=== PATIENT | female | born 1995 | race Native Hawaiian/Other Pacific Islander ===

== ENCOUNTER → 2018-01-22 | Outpatient (CLI) | payer OTHER ==
--- NOTE | 2018-01-22 20:19 | US ---
EXAMINATION TYPE: US OB <= 14 wk fetus DATE OF EXAM: 01/22/2018 COMPARISON: NONE CLINICAL HISTORY: 22-year-old female Z36 confirm dates. EXAM PERFORMED: Transabdominal (TA) FINDINGS: EXAM MEASUREMENTS: GESTATIONAL AGE / DATING Physician Established: Not yet established Dates by LMP: (13 weeks/0 days) EDC: 07/30/2018 Dates by First Scan: No previous this is first scan Dates by Current Scan for: (12 weeks/6 days) EDC: 07/31/2018 MATERNAL ANATOMY Uterus: 13.9 x 7.3 x 8.5 cm Right Ovary: 3.3 x 2.7 x 1.9 cm Left Ovary: 2.5 x 1.9 x 1.2 cm Post CDS / Adnexa: wnl Presence of free fluid: No Presence of corpus luteal cyst: Yes, probably on the right measuring 1.8 cm. Presence of subchorionic bleed: Round hypoechoic area measuring 1.0 x 0.8 x 1.0 cm GESTATION / SURVEY CRL: 6.4 cm (12 weeks/6 days) Heart Rate: 165 bpm Rhythm: Normal IUP: Viable IUP Date of LMP: 10/23/2017 Beta HcG (if available): Not available at this time [employer] Special Items notes: Viable IUP, measurements consistent with dates. Probable subchorionic bleed visual ized measuring 1.0 x 0.8 x 1.0 cm IMPRESSION: 1. Single live intrauterine with estimated gestational age of 13 weeks 0 days by LMP. Curre nt ultrasound biometry is concordant (12 weeks 6 days). 2. A small round 1 cm hypoechoic area could represent a tiny perigestational bleed. Short interval fo llow-up can be performed if indicated. 3. Otherwise, complete survey recommended at 18-20 weeks.
== END | disposition home or self-care (01) ==
LOC: RADUSWWP 16:35
PROVIDERS: ATTEND Obstetrics & Gynecology
DX: O34.81 Maternal care for other abnormalities of pelvic organs, first trimester (principal); Z3A.12 12 weeks gestation of pregnancy
CPT/HCPCS: 76801

== ENCOUNTER 2018-07-30 09:18 | Inpatient (IN) | payer OTHER ==
[2018-07-30 10:02] LABS: Appearance,Urine Clear (Clear); Bacteria,Urine Rare /hpf; Bilirubin,Urine Negative (Negative); Blood,Urine Negative (Negative); Color,Urine Light Yellow; Glucose,Urine (UA) Negative (Negative); Ketones,Urine Negative (Negative); Leukocyte Esterase,Urine Large (Negative); Mucus,Urine Rare /hpf; Nitrite,Urine Negative (Negative); Protein,Urine Negative (Negative); RBC,Urine 2 /hpf (0-5); Specific Gravity,Urine 1.006 (1.001-1.035); Squamous Epithelial Cell,Urine 6 /hpf (0-4); Urobilinogen,Urine <2.0 mg/dL (<2.0); WBC,Urine 4 /hpf (0-5)
[2018-07-30] MEDS ORDERED: LIDOCAINE 1% (PF) 10 MG/ML (30 ML SDV) SQ PRN (10:25)
[2018-07-30] MEDS ORDERED: OXYTOCIN 10 UNIT/ML 1 ML VIAL IM PRN (10:25)
[2018-07-30] MEDS ORDERED: TERBUTALINE 1 MG/ML VIAL SQ PRN (10:25)
[2018-07-30] MEDS ORDERED: METHYLERGONOVINE 0.2 MG/ML 1 ML AMP IM PRN (10:25)
[2018-07-30] MEDS ORDERED: CARBOPROST TROMETHAMINE 250 MCG/ML 1 ML AMP IM PRN (10:25)
[2018-07-30 10:58] LABS: ALT 25 U/L (9-52); AST 28 U/L (14-36); Blood Urea Nitrogen 4 mg/dL (7-17); LDH 654 U/L (313-618)
[2018-07-30] MEDS: LACTATED RINGERS 1,000 ML IV SCH ×2 (11:03→19:06)
[2018-07-30 11:11] LABS: Basophils % (A) 0 %; Eosinophils # (A) 0.2 k/uL (0-0.7); Eosinophils % (A) 2 %; HCT 35.8 % (34.0-46.0); HGB 11.8 gm/dL (11.4-16.0); Hypochromasia Slight; Lymphocytes # (A) 1.8 k/uL (1.0-4.8); Lymphocytes % (A) 19 %; MCH 28.3 pg (25.0-35.0); MCV 85.9 fL (80.0-100.0); Mean Platelet Volume 7.2; Monocytes # (A) 0.6 k/uL (0-1.0); Monocytes % (A) 7 %; Neutrophils # (A) 6.4 k/uL (1.3-7.7); Neutrophils % (A) 70 %; Platelet Count 283 k/uL (150-450); Poikilocytosis Slight; RBC 4.17 m/uL (3.80-5.40); WBC 9.2 k/uL (3.8-10.6)
[2018-07-30 11:58] VITALS: BMI 32.1
--- NOTE | 2018-07-30 13:24 | P.HPOB ---
History of Present Illness H&P Date: 07/30/18 Chief Complaint: Contractions This is a 22-year-old female 1 para 0 with an estimated date of confinement of 07/30/2018, estimated gestational age of 40-0/7 weeks, who presents to labor and delivery with complaints of contractions that began yesterday and became stronger this morning. course has been uncomplicated up until this time. At her last visit on Monday she did have an elevated blood pressure but it was rechecked and went down to normal. She was scheduled for induction in a couple more days. She currently denies any headaches, blurry vision, or increased swelling. Upon arrival to triage her blood pressures were slightly elevated. labs: Hepatitis B surface antigen-negative RPR-nonreactive Rubella-immune Blood type-B positive Antibody screen-negative HIV-nonreactive Hemoglobin-12.2 Random glucose-82 Group B streptococcus-negative Chlamydia-positive early in and tested cure negative. However her boyfriend was recently tested positive and she was retreated a couple weeks ago. Tested cure has not been completed. Obstetrical history: Gynecologic history: History of chlamydia treated during this Social history: She is single. 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 Review of Systems Constitutional: Denies chills, Denies fever Eyes: denies blurred vision, denies pain Ears, nose, mouth and throat: Denies headache, Denies sore throat Cardiovascular: Denies chest pain, Denies shortness of breath Respiratory: Denies cough Gastrointestinal: Reports abdominal pain (Contractions), Denies diarrhea, Denies nausea, Denies vomiting Genitourinary: Reports pelvic pain, Reports Musculoskeletal: Reports low back pain Neurological: Denies numbness, Denies weakness Psychiatric: Denies anxiety, Denies depression Past Medical History Additional Past Medical History / Comment(s): Low Iron as an History of Any Multi-Drug Resistant Organisms: None Reported Past Surgical History: No Surgical Hx Reported Past Anesthesia/Blood Transfusion Reactions: No Reported Reaction Past Psychological History: No Psychological Hx Reported Smoking Status: Never smoker Past Alcohol Use History: None Reported Past Drug Use History: None Reported - Past Family History Father Family Medical History: No Reported History Medications and Allergies Home Medications Medication Instructions Recorded Confirmed Type No Known Home Medications 07/30/18 07/30/18 History Allergies Allergy/AdvReac Type Severity Reaction Status Date / Time No Known Allergies Allergy Verified 07/30/18 09:27 Exam Osteopathic Statement: *. No significant issues noted on an osteopathic structural exam other than those noted in the History and Physical/Consult. Vital Signs Temp Pulse Resp BP 07/30/18 09:28 97.9 F 85 16 143/94 Intake and Output 07/29/18 07/30/18 07/30/18 22:59 06:59 14:59 Other: Weight 82.1 kg HEENT: Within normal limits Heart: Regular rate and rhythm Lungs: Clear to auscultation bilaterally Abdomen: Cervix: On admission was 2 cm and shortly after admission was 3-1/2 cm/100%/-2 station. heart tones: Reactive Contractions: Approximately every 2-3 minutes Extremities: Negative Homans Results Result Diagrams: 07/30/18 10:30 07/30/18 10:30 Abnormal Lab Results - Last 24 Hours (Table) 07/30/18 07/30/18 Range/Units 09:35 10:30 BUN 4 L (7-17) mg/dL Creatinine 0.39 L (0.52-1.04) mg/dL Lactate Dehydrogenase 654 H (313-618) U/L Ur Leukocyte Esterase Large H (Negative) Ur Squamous Epith Cells 6 H (0-4) /hpf Urine Bacteria Rare H (None) /hpf Urine Mucus Rare H (None) /hpf Assessment and Plan (1) 40 weeks gestation of Current Visit: Yes Status: Acute Code(s): Z3A.40 - 40 WEEKS GESTATION OF SNOMED Code(s): 41720469 (2) Gestational hypertension affecting first Current Visit: Yes Status: Acute Code(s): O13.9 - GESTATIONAL HTN W/O SIGNIFICANT PROTEINURIA, UNSP TRIMESTER SNOMED Code(s): 35980647 Plan: Admission for early labor. Artificial rupture membranes and expectant management. Epidural anesthesia if desired. Will monitor blood pressures.
--- NOTE | 2018-07-30 13:27 | P.MSEPDOC ---
Presenting Problems - Arrival Data Date of Arrival on Unit: 07/30/18 Time of Arrival on Unit: 10:43 Mode of Transport: Ambulatory - Complaint OB-Reason for Admission/Chief Complaint: Possible Onset of Labor Comment: contractions x 1 day, stronger and 5 min apart today Medical History - Information : 1 Para: 0 Term: 0 : 0 Abortions: Spontaneous or Elective: 0 Number of Living Children: 0 - Gestational Age Gestational Age by ZULEYKA (wks/days): 40 Weeks and 0 Days Review of Systems - Review of Systems Constitutional: No problems Breast: No problems ENT: No problems Cardiovascular: No problems Respiratory: No problems Gastrointestinal: No problems Genitourinary: No problems Musculoskeletal: No problems Neurological: No problems Skin: No problems Vital Signs - Temperature Temperature: 97.9 F Temperature Source: Temporal Artery Scan - Pulse Right Brachial Pulse Rate: 85 Pulse Assessment Method: Automatic Cuff - Respirations Respiratory Rate: 16 Oxygen Delivery Method: Room Air - Blood Pressure Right Arm Sitting Blood Pressure: 143/94 Blood Pressure Mean: 110 Blood Pressure Source: Automatic Cuff Medical Screen Scoring (Pre) - Cervical Exam Dilation: 1-3 cm = 1 Effacement: More than 50% = 2 Membranes: Intact - Uterine Contractions Frequency: > or = 36 weeks =2 Duration: > 40 seconds = 2 - Maternal Vital Signs Maternal Temperature: N/A Maternal Blood Pressure: Diastolic > 89 = 1 Signs of Preeclampsia: N/A Maternal Respirations: N/A - Pain Assessment Pain Location and Character: Abdomen Pain Scale Used: Numeric (1 - 10) Pain Intensity: 6 Pain Description: *Acute, Tightness Pain Frequency: Intermittent Pain Duration: 4 Pain Duration Units: Hours Pain Behavior: None Exhibited Pain Aggravating Factors: Contractions - Maternal Trauma Maternal Trauma: N/A - Assessment Baseline FHR: 140 Heart Rate - NICHD Category: Category I (Normal) = 0 NST: Reactive Position: N/A - Total Score Total Score (Pre): 8 - Level of Risk Level of Risk: Medium (6-9) Physician Notification (Post) - Physician Notified Physician Notified Date: 07/30/18 Physician Notified Time: 10:23 Spoke With: Tristan Vizcarra Order Received: Yes (admit for labor, PIH workup) Disposition - Disposition OB Disposition: LDRP Suite I agree with the RN Medical Screening Exam: Yes Risk & Benefit of care provided described in d/c instruction: Yes Diagnosis: ENCOUNTER FOR FULL-TERM UNCOMPLICATED DELIVERY
[2018-07-30] MEDS: BUTORPHANOL 1 MG/ML 1 ML VIAL IV PRN ×2 (15:10→17:34)
[2018-07-30] MEDS ORDERED: CITRIC ACID-SODIUM CITRATE 15 ML CUP PO ONE (19:01)
[2018-07-30] MEDS ORDERED: ceFAZolin IN SWFI 2 GM/20 ML SYRINGE IVP ONE (19:01)
[2018-07-30] MEDS ORDERED: OXYTOCIN 10 UNIT/ML 1 ML VIAL ONE (19:18)
[2018-07-30] MEDS ORDERED: PHENYLEPHRINE-0.9% NACL SYG 1 MG/10 ML SYRINGE ONE (19:18)
[2018-07-30] MEDS ORDERED: MORPHINE SULFATE (PF) 0.3 MG/0.3 ML SYR ONE (19:18)
[2018-07-30] MEDS ORDERED: KETOROLAC 30 MG/ML 1 ML VIAL ONE (19:18)
[2018-07-30] MEDS ORDERED: NALBUPHINE 10 MG/ML VIAL (10ML MDV) ONE (19:18)
[2018-07-30] MEDS ORDERED: ONDANSETRON 4 MG/2 ML VIAL ONE (19:18)
--- NOTE | 2018-07-30 20:01 | P.OP ---
Date of Procedure: 07/30/18 Preoperative Diagnosis: 1. Intrauterine at 40-0/7 weeks. 2. Gestational hypertension. 3. Failure to progress. Postoperative Diagnosis: Same Procedure(s) Performed: Primary low transverse section Anesthesia: spinal (Duramorph) Surgeon: Sahara Hudson Power Brake Rebuilder #1: Damaris Jaquez Estimated Blood Loss (ml): 400 Pathology: other (Placenta) Condition: stable Disposition: floor Indications for Procedure: This is a 22-year-old female 1 para 0 at 40-0/7 weeks who presented in early active labor. She also is noted to have some elevated blood pressures. Her urine was negative for protein and her labs were essentially normal other than elevated LDH. Her blood pressures did not reach critical levels during labor. She progressed to a maximum of 6 cm and then did not make any further change for at least 4 hours despite adequate contractions. At this point the decision was made to proceed with section for failure to progress. Operative Findings: A viable female infant is noted in the vertex presentation with caput noted. Apgars are 8 at 1 minute and 9 at 5 minutes and infant weight was 7 lbs. 7 oz. Normal uterus tubes and ovaries are noted. Description of Procedure: The patient is taken to the operating room where she is placed in the dorsal supine position with leftward tilt after spinal Duramorph anesthesia is given. She is prepped and draped in the normal sterile fashion. Skin was tested and found to be adequately anesthetized. A Pfannenstiel skin incision was made with a scalpel. A second knife was used to carry the incision down to the underlying layer of fascia. The fascia was nicked in the midline with a scalpel and then extended laterally bilaterally with Wray scissors. The anterior lip of the fascia was grasped with 2 Wolf clamps and then dissected off the underlying rectus muscle in the midline with Wray scissors. The inferior aspect of the fascial incision was grasped with 2 Wolf clamps and dissected off the underlying rectus muscle and the midline with Wray scissors. Next the peritoneum layer was tented up with 2 hemostats and then entered sharply with the scalpel. The incision is extended superiorly and inferiorly with Metzenbaum scissors. Next a DeLee retractor is placed. The vesicouterine peritoneum is entered sharply with Metzenbaum scissors and extended laterally bilaterally with Metzenbaum scissors and then the bladder flap is pushed inferiorly. The lower uterine segment is incised in transverse fashion with the scalpel and then bluntly entered with a hemostat. Clear fluid is noted. The incision was then extended laterally bilaterally with 2 fingers. Next the 's head is delivered through the incision. Nose and mouth are bulb suctioned. The remainder of the infant is easily delivered and placed on mother 's abdomen. Cord is clamped and cut. is taken to warmer by nursing staff. Uterine fundus is gently massaged and placenta is delivered manually. Uterus is exteriorized and cleared of all clots and debris. Uterine incision is closed with 0 Vicryl suture in a running locked fashion. A second layer of 0 Vicryl suture is used in a running fashion for hemostasis. Once adequate hemostasis as assured, the vesicouterine peritoneum is reapproximated with 2-0 Vicryl suture in a running fashion. Posterior cul-de-sac is suctioned of all clots and debris. Uterus is returned to the abdomen. Incision is noted to be hemostatic. Peritoneal layer is closed with 0 Vicryl suture in a running fashion. Muscle layer is reapproximated with 0 Vicryl suture in interrupted fashion. Fascia layer is then closed with 0 PDS suture with 2 sutures meeting in the midline and the knots buried in either side and in the midline. The subcutaneous tissue was then closed with 2-0 Vicryl suture. Skin layer was then closed with liya. All sponge and needle counts are correct. The patient is taken to recovery room in stable condition.
[2018-07-30] MEDS ORDERED: ONDANSETRON 4 MG/2 ML VIAL IVP PRN (20:04)
[2018-07-30] MEDS ORDERED: HYDROcodone/APAP 5-325MG 1 EACH TAB PO PRN (20:04)
[2018-07-30] MEDS ORDERED: diphenhydrAMINE 50 MG CAP PO PRN (20:04)
[2018-07-30] MEDS ORDERED: KETOROLAC 30 MG/ML 1 ML VIAL IVP PRN (20:04)
[2018-07-30] MEDS ORDERED: METOCLOPRAMIDE 5 MG/ML 2 ML VIAL IVP PRN (20:04)
[2018-07-30] MEDS ORDERED: diphenhydrAMINE 50 MG/ML 1 ML VIAL IVP PRN ×2 (20:04)
[2018-07-30] MEDS ORDERED: ACETAMINOPHEN TAB 325 MG TAB PO PRN (20:04)
[2018-07-30] MEDS ORDERED: SIMETHICONE 80 MG CHEWABLE PO PRN (20:04)
[2018-07-30] MEDS ORDERED: diphenhydrAMINE 25 MG CAP PO PRN (20:04)
[2018-07-30] MEDS ORDERED: ZOLPIDEM 5 MG TAB PO PRN (20:04)
[2018-07-30] MEDS ORDERED: NALOXONE 0.4 MG/ML 1 ML VIAL IV PRN (20:04)
[2018-07-30] MEDS ORDERED: HYDROcodone/APAP 7.5-325MG 1 EACH TAB PO PRN (20:04)
[2018-07-30] MEDS ORDERED: OXYTOCIN 20 UNITS/1000 ML NS 1,000 ML IV SCH (20:04)
[2018-07-30] MEDS ORDERED: LANOLIN CREAM 5 GM TUBE TOPICAL PRN (20:04)
[2018-07-31] MEDS ORDERED: NALOXONE 0.4 MG/ML 1 ML VIAL IV PRN (03:04)
[2018-07-31] MEDS ORDERED: MORPHINE SULFATE 4 MG/ML SYRINGE IVP PRN (03:04)
[2018-07-31] MEDS: SENNOSIDES-DOCUSATE SODIUM 1 EACH TAB PO SCH ×2 (07:56→20:32)
[2018-07-31 08:18] LABS: Basophils # (A) 0.1 k/uL (0-0.2); Basophils % (A) 1 %; Eosinophils # (A) 0.1 k/uL (0-0.7); Eosinophils % (A) 1 %; HCT 33.4 % (34.0-46.0); HGB 10.9 gm/dL (11.4-16.0); Hypochromasia Slight; Lymphocytes # (A) 1.8 k/uL (1.0-4.8); Lymphocytes % (A) 15 %; MCH 28.4 pg (25.0-35.0); MCHC 32.6 g/dL (31.0-37.0); Monocytes # (A) 0.6 k/uL (0-1.0); Monocytes % (A) 6 %; Neutrophils # (A) 9.1 k/uL (1.3-7.7); Neutrophils % (A) 77 %; Platelet Count 276 k/uL (150-450); Poikilocytosis Slight; RBC 3.84 m/uL (3.80-5.40); RDW 13.2 % (11.5-15.5); WBC 11.7 k/uL (3.8-10.6)
--- NOTE | 2018-07-31 08:50 | P.PN ---
Progress Note - Text Date: 07/31/2018 Time: 07 The patient is status post section Vital signs stable VAS: 0-10 Patient has no complaints of pain, nausea, vomiting or headache. Pain meds to be managed by service.
--- NOTE | 2018-07-31 09:13 | P.PNOBGPC ---
Subjective - Subjective Principal diagnosis: Status post delivery postoperative day #1 Interval history: Patient is doing well. She is ambulating. Lochia is decreasing. Pain is well- controlled. She has been unable to urinate yet. She is not passing flatus yet. She is working on breast-feeding. Patient reports: Reports appetite normal, Reports pain well controlled, Reports ambulating normally [place]: doing well Objective - Vital Signs Latest vital signs: Vital Signs Temp Pulse Resp BP Pulse Ox 07/31/18 07:56 99.0 F 88 18 137/77 100 07/31/18 06:05 16 07/31/18 04:05 16 99 07/31/18 04:00 98.1 F 85 16 144/89 99 07/31/18 03:05 16 99 07/31/18 00:00 86 16 139/95 07/30/18 22:05 88 16 135/84 99 07/30/18 21:35 85 16 137/80 99 07/30/18 21:05 86 16 134/80 97 07/30/18 20:50 83 16 135/74 98 07/30/18 20:35 95 16 137/62 99 07/30/18 20:20 80 16 140/83 07/30/18 20:05 96.3 F L 70 16 114/55 99 07/30/18 13:27 97.9 F 85 16 143/94 07/30/18 09:28 97.9 F 85 16 143/94 Intake and Output 07/30/18 07/31/18 07/31/18 22:59 06:59 14:59 Intake Total 600 Output Total 1150 Balance -1150 600 Intake: Oral 600 Output: Urine 1150 Other: Voiding Method Indwelling Catheter Indwelling Catheter # Voids 2 - Exam Extremities: Present: normal. Absent: tenderness Abdomen: Present: normal appearance, soft (Faint bowel sounds 4). Absent: distention, tenderness Incision: Present: normal, dry, intact. Absent: erythematous Uterus: Present: normal, firm, tenderness (Mild) - Labs Labs: Abnormal Lab Results - Last 24 Hours (Table) 07/30/18 07/30/18 07/31/18 Range/Units 09:35 10:30 08:00 WBC 11.7 H (3.8-10.6) k/uL Hgb 10.9 L (11.4-16.0) gm/dL Hct 33.4 L (34.0-46.0) % Neutrophils # 9.1 H (1.3-7.7) k/uL BUN 4 L (7-17) mg/dL Creatinine 0.39 L (0.52-1.04) mg/dL Lactate Dehydrogenase 654 H (313-618) U/L Ur Leukocyte Esterase Large H (Negative) Ur Squamous Epith Cells 6 H (0-4) /hpf Urine Bacteria Rare H (None) /hpf Urine Mucus Rare H (None) /hpf Assessment and Plan Assessment: Impression is status post primary section postoperative day #1. (1) 40 weeks gestation of Current Visit: Yes Status: Acute Code(s): Z3A.40 - 40 WEEKS GESTATION OF SNOMED Code(s): 56501226 (2) Gestational hypertension affecting first Current Visit: Yes Status: Acute Code(s): O13.9 - GESTATIONAL HTN W/O SIGNIFICANT PROTEINURIA, UNSP TRIMESTER SNOMED Code(s): 67253247 Plan: Continue with postoperative care. Blood pressures have been relatively stable. Will advance diet as tolerated after flatus.
[2018-07-31] MEDS: IBUPROFEN 600 MG TAB PO PRN (16:09)
[2018-08-01] MEDS: IBUPROFEN 600 MG TAB PO PRN ×2 (00:11→07:41)
[2018-08-01] MEDS: SENNOSIDES-DOCUSATE SODIUM 1 EACH TAB PO SCH (07:40)
[2018-08-01 07:59] VITALS: PULSE 82; TEMP 98.6
--- NOTE | 2018-08-01 08:13 | P.DS ---
Providers Date of admission: 07/30/18 10:23 Expected date of discharge: 08/01/18 Attending physician: Sahara Hudson Primary care physician: Stated None - Discharge Diagnosis(es) (1) 40 weeks gestation of Current Visit: Yes Status: Acute (2) Gestational hypertension affecting first Current Visit: Yes Status: Acute Hospital Course: This is a 22-year-old female 1 para 0 at 40-0/7 weeks who presented with active labor. She also had some slightly elevated blood pressures on admission. Her protein was negative. Her LDH was slightly elevated. She ended up undergoing a primary low transverse section due to failure to progress. She delivered a viable female with scores of 8 at 1 minute and 9 at 5 minutes and infant weight of 7 lbs. 7 oz. Her course has been essentially uncomplicated. Her pain is been fairly well- controlled with ibuprofen. She declines any narcotic pain medication. Her blood pressures have been in the 130s to 140s over 80s to 90s. She is otherwise asymptomatic. She is urinating and passing flatus but no bowel movement yet. She is working on breast-feeding. Vital signs are stable. Abdomen is soft with positive bowel sounds 4. Incision is clean dry and intact with liya in place. Extremities show negative Homans. Impression is status post primary section postoperative day #2. Plan is to discharge home today. Routine instructions are given. She is advised to follow up in the office in 1 week for a postoperative check with blood pressure check. She is also advised to follow up in 6 weeks for check. She is advised to call the office if she has any further questions or concerns prior to her appointment time. Liya will be removed and Steri-Strips placed prior to discharge. She will be given a prescription for ibuprofen and a breast pump. Procedures: Primary low transverse section on 07/30/2018 for delivery of a viable female infant Patient Condition at Discharge: Stable Plan - Discharge Summary New Discharge Prescriptions: New Ibuprofen [Motrin] 600 mg PO Q6HR PRN #60 tab PRN Reason: Mild Pain Or Fever >= 100.5 Discharge Medication List Ibuprofen [Motrin] 600 mg PO Q6HR PRN #60 tab 08/01/18 [Rx] Follow up Appointment(s)/Referral(s): Sahara Hudson DO [Doctor of Osteopathic Medicine] - 1 Week Activity/Diet/Wound Care/Special Instructions: Instructions 1. Do not begin any exercise program for 3 weeks. 2. Do not resume sexual relations for 3 weeks or longer if uncomfortable. 3. You may take tub baths or showers at any time. 4. You may use tampons if desired after 3 weeks. 5. Keep the area of episiotomy (stitches) clean and dry. 6. If you are not nursing, wear a good fitting, supportive bra during the day and limit fluid intake for at least 1 week to prevent breast engorgement. 7. Call the office, [phone], within the next week to make appointment for your 6 week checkup if it has not already been made. 8. Report any of the following occurrences to the doctor promptly: a. Heavy, excessive bleeding b. Chills, fever c. Burning or frequency of urination d. Pain or redness and breasts if nursing e. Increasing pain or swelling in episiotomy (stitches). In addition to the above instructions, the following additional should be followed: 1. No heavy lifting or straining (exercising) until after 6 week checkup. 2. Keep abdominal incision clean and dry: You may wear a dressing if more comfortable. 3. Make office appointment for 10 days after going home or as instructed by her doctor. Discharge Disposition: HOME SELF-CARE
[2018-08-01 13:11] VITALS: RESP 18
[2018-08-01 14:54] VITALS: BP 141/90
== END 2018-08-01 14:30 | disposition home or self-care (01) | DRG 766 ==
LOC: FBPOP 09:18 → 4FBP 10:23
PROVIDERS: ADMIT Obstetrics & Gynecology; ATTEND Obstetrics & Gynecology
PROC: 10907ZC Drainage of Amniotic Fluid, Therapeutic from Products of Conception, Via Natural or Artificial Opening (ICD-10-PCS; principal; 2018-07-30 19:00)
PROC: 10D00Z1 Extraction of Products of Conception, Low, Open Approach (ICD-10-PCS; principal; 2018-07-30 19:00)
DX: O48.0 Post-term pregnancy (principal); Z37.0 Single live birth; Z3A.40 40 weeks gestation of pregnancy; O13.4 Gestational [pregnancy-induced] hypertension without significant proteinuria, complicating childbirth; O62.2 Other uterine inertia
CPT/HCPCS: 59025; 81001; 82565; 83615; 84450; 84460; 84520; 84550; 85025; 86850; 86900; 86901; 88307; 99213

== ENCOUNTER 2019-08-24 23:50 | Emergency (ER) | payer OTHER ==
[2019-08-25] MEDS ORDERED: MORPHINE SULFATE 2 MG/ML SYRINGE IVP STA (00:13)
[2019-08-25] MEDS ORDERED: SODIUM CHLORIDE 0.9% 1,000 ML IV STA (00:13)
[2019-08-25] MEDS ORDERED: ONDANSETRON 4 MG/2 ML VIAL IVP STA (00:13)
[2019-08-25 00:35] LABS: Basophils # (A) 0.1 k/uL (0-0.2); Basophils % (A) 1 %; Eosinophils # (A) 0.1 k/uL (0-0.7); Eosinophils % (A) 1 %; HCT 38.6 % (34.0-46.0); HGB 12.6 gm/dL (11.4-16.0); Lymphocytes # (A) 1.3 k/uL (1.0-4.8); Lymphocytes % (A) 12 %; MCH 26.9 pg (25.0-35.0); MCHC 32.6 g/dL (31.0-37.0); MCV 82.5 fL (80.0-100.0); Mean Platelet Volume 6.5; Monocytes # (A) 0.8 k/uL (0-1.0); Monocytes % (A) 8 %; Neutrophils # (A) 8.4 k/uL (1.3-7.7); Neutrophils % (A) 77 %; Platelet Count 382 k/uL (150-450); RBC 4.68 m/uL (3.80-5.40); RDW 14.3 % (11.5-15.5); WBC 10.9 k/uL (3.8-10.6)
[2019-08-25 00:47] LABS: Appearance,Urine Cloudy (Clear); Bacteria,Urine Few /hpf; Bilirubin,Urine Negative (Negative); Blood,Urine Trace (Negative); Color,Urine Yellow; Glucose,Urine (UA) Negative (Negative); Ketones,Urine 3+ (Negative); Leukocyte Esterase,Urine Large (Negative); Mucus,Urine Few /hpf; Nitrite,Urine Negative (Negative); PH, Urine 6.5 (5.0-8.0); Protein,Urine 1+ (Negative); RBC,Urine 3 /hpf (0-5); Specific Gravity,Urine 1.011 (1.001-1.035); Squamous Epithelial Cell,Urine 1 /hpf (0-4); Urobilinogen,Urine <2.0 mg/dL (<2.0); WBC,Urine >182 /hpf (0-5)
[2019-08-25 00:51] LABS: ALT 14 U/L (9-52); AST 24 U/L (14-36); African American GFR (CKD) >90 (>60 ml/min/1.73 sqM); Albumin 4.6 g/dL (3.5-5.0); Alkaline Phosphatase 99 U/L (38-126); Amylase 66 U/L (30-110); Anion Gap 13 mmol/L; Blood Urea Nitrogen 5 mg/dL (7-17); Calcium 9.6 mg/dL (8.4-10.2); Carbon Dioxide 22 mmol/L (22-30); Chloride 100 mmol/L (98-107); Glucose 119 mg/dL (74-99); Potassium 3.3 mmol/L (3.5-5.1); Sodium 135 mmol/L (137-145); Total Bilirubin 1.1 mg/dL (0.2-1.3); Total Protein 8.6 g/dL (6.3-8.2)
[2019-08-25] MEDS ORDERED: cefTRIAXone IN SWFI 1,000 MG/10 ML SYRINGE IVP STA (01:00)
[2019-08-25] MEDS ORDERED: POTASSIUM CHLORIDE ER 20 MEQ TAB.ER PO STA (01:25)
--- NOTE | 2019-08-25 01:47 | US ---
EXAMINATION TYPE: Transabdominal DATE OF EXAM: 08/25/2019 1:38 AM COMPARISON: NONE CLINICAL HISTORY: RLQ pain; . Right pelvic pain, nausea, intermittent spotting EXAM PERFORMED: Transabdominal (TA) EXAM MEASUREMENTS: GESTATIONAL AGE / DATING Physician Established: Not yet established Dates by LMP: LMP unknown Dates by First Scan: No previous this is first scan Dates by Current Scan for: (6 weeks/4 days) EDC: 04/15/20 MATERNAL ANATOMY Uterus: 10.5 x 5.5 x 6.7cm Right Ovary: 4.0 x 2.3 x 2.1cm Left Ovary: 2.3 x 1.6 x 1.6cm Post CDS / Adnexa: appears wnl Presence of free fluid: no Presence of corpus luteal cyst: complex area right ovary = 1.7x 2.0 x 2.1cm Presence of subchorionic bleed: yes, small fluid collection adjacent to GS = 1.5 x 1.0cm GESTATION / SURVEY CRL: 0.6cm (6 weeks/4 days) Yolk Sac (normal less than 6mm): 0.4cm Heart Rate: 122 bpm Rhythm: Normal IUP: Viable IUP Date of LMP: 2 months ago Beta HcG (if available): Not available at this time Single viable IUP 6wks/4days with ZULEYKA of 04/15/20. Corpus luteum right ovary. Small subchorionic blee d IMPRESSION: Tiny subchorionic fluid collection. Living single intrauterine fetus with gestational age of 6 weeks and 4 days.
[2019-08-25] MEDS ORDERED: SODIUM CHLORIDE 0.9% 1,000 ML IV ONE (01:53)
[2019-08-25 01:58] VITALS: BP 136/72; RESP 18
--- NOTE | 2019-08-25 02:14 | ED ---
Abdominal Pain HPI - General Chief Complaint: Abdominal Pain Stated Complaint: lower abd pain Time Seen by Provider: 08/25/19 00:10 Source: patient Mode of arrival: ambulatory Limitations: no limitations - History of Present Illness Initial Comments: 23-year-old female patient presents to the emergency department for evaluation of right lower quadrant abdominal pain. Patient states the pain started 2 days ago has been worsening since. Patient sates the pain is starting to radiate into the right lower back. Patient states she has not had a period for the last 2 months. States that she did take a test that the results were inconclusive. She does report nausea and did have an episode of vomiting earlier today. She denies fevers but states she has been chilled. She denies taking any medication for her symptoms. Patient denies history of abdominal surgery. Denies any constipation or diarrhea. Denies any hematuria, dysuria, urinary frequency, urinary urgency. Denies any abnormal vaginal bleeding or discharge. Patient denies any recent rash, shortness breath, chest pain, numbness, tingling, dizziness, weakness, headache, visual changes, or any other complaints. - Related Data Previous Rx's Medication Instructions Recorded Ibuprofen [Motrin] 600 mg PO Q6HR PRN #60 tab 08/01/18 Cephalexin [Keflex] 500 mg PO Q6HR #40 cap 08/25/19 Pnv No.95/Ferrous Fum/Folic AC 1 each PO DAILY #30 tablet 08/25/19 [ Multivitamin Tablet] Allergies Allergy/AdvReac Type Severity Reaction Status Date / Time No Known Allergies Allergy Verified 08/25/19 00:02 Review of Systems ROS Statement: Those systems with pertinent positive or pertinent negative responses have been documented in the HPI. ROS Other: All systems not noted in ROS Statement are negative. Past Medical History Past Medical History: No Reported History Additional Past Medical History / Comment(s): Low Iron as an Infant History of Any Multi-Drug Resistant Organisms: None Reported Past Surgical History: Section Past Anesthesia/Blood Transfusion Reactions: No Reported Reaction Past Psychological History: No Psychological Hx Reported Smoking Status: Never smoker Past Alcohol Use History: None Reported Past Drug Use History: None Reported - Past Family History Father Family Medical History: No Reported History General Exam Limitations: no limitations General appearance: alert, in no apparent distress, other (This is a well-deve loped, well-nourished adult female patient in no acute distress. Vital signs upon presentation are temperature 99.3F, pulse 114, respirations 16, blood pressure 145/85, pulse ox 99% on room air.) Eye exam: Present: normal appearance, PERRL, EOMI. Absent: scleral icterus, conjunctival injection, periorbital swelling ENT exam: Present: normal exam, normal oropharynx, mucous membranes moist Respiratory exam: Present: normal lung sounds bilaterally. Absent: respiratory distress, wheezes, rales, rhonchi, stridor Cardiovascular Exam: Present: regular rate, normal rhythm, normal heart sounds. Absent: systolic murmur, diastolic murmur, rubs, gallop, clicks GI/Abdominal exam: Present: soft, tenderness (Right lower quadrant tenderness), normal bowel sounds. Absent: distended, guarding, rebound, rigid Back exam: Present: normal inspection. Absent: CVA tenderness (R), CVA tenderness (L) Neurological exam: Present: alert, oriented X3, CN II-XII intact Psychiatric exam: Present: normal affect, normal mood Skin exam: Present: warm, dry, intact, normal color. Absent: rash Course Vital Signs 08/24/19 08/25/19 08/25/19 23:59 01:56 02:59 Temperature 99.3 F 98.6 F 98.8 F Pulse Rate 114 H 88 82 Respiratory 16 18 18 Rate Blood Pressure 145/85 136/72 136/72 O2 Sat by Pulse 99 100 100 Oximetry Medical Decision Making - Medical Decision Making 23-year-old female patient presents to the emergency department today for evaluation of right lower quadrant pain radiating to the right low back. Physical examination did reveal right lower quadrant tenderness. Labs reviewed and did reveal elevated white blood cell count at 10.9. Potassium 3.3. Glucose 119. Urinalysis was cloudy with 1+ protein, 3+ ketones, trace amount of blood. Large leukocyte esterase, greater than 182 white blood cells, few white blood cell clumps, few bacteria, few mucus. test was positive. Did obtain ultrasound to rule out miscarriage and ectopic , this showed a viable intrauterine measuring 6 weeks and 4 days, heart rate 122. There is a tiny subchorionic hemorrhage. Patient will be given IV dose of Rocephin. Urine culture was sent. I did discuss diagnosis of urinary tract infection as well as threatened with the patient. She is instructed to follow-up with PROCESSOR HELPER for recheck as soon as possible. We'll start vitamins. She is instructed follow up with her primary care physician for recheck in 1-2 days. Return parameters were discussed in detail. She verbalizes understanding and agrees with this plan. - Lab Data Result diagrams: 08/25/19 00:15 08/25/19 00:15 Lab Results 08/25/19 08/25/19 08/25/19 Range/Units 00:05 00:05 00:15 WBC (3.8-10.6) k/uL RBC (3.80-5.40) m/uL Hgb (11.4-16.0) gm/dL Hct (34.0-46.0) % MCV (80.0-100.0) fL MCH (25.0-35.0) pg MCHC (31.0-37.0) g/dL RDW (11.5-15.5) % Plt Count (150-450) k/uL Neutrophils % % Lymphocytes % % Monocytes % % Eosinophils % % Basophils % % Neutrophils # (1.3-7.7) k/uL Lymphocytes # (1.0-4.8) k/uL Monocytes # (0-1.0) k/uL Eosinophils # (0-0.7) k/uL Basophils # (0-0.2) k/uL Sodium 135 L (137-145) mmol/L Potassium 3.3 L (3.5-5.1) mmol/L Chloride 100 (98-107) mmol/L Carbon Dioxide 22 (22-30) mmol/L Anion Gap 13 mmol/L BUN 5 L (7-17) mg/dL Creatinine 0.53 (0.52-1.04) mg/dL Est GFR (CKD-EPI)AfAm >90 (>60 ml/min/1.73 sqM) Est GFR (CKD-EPI)NonAf >90 (>60 ml/min/1.73 sqM) Glucose 119 H (74-99) mg/dL Calcium 9.6 (8.4-10.2) mg/dL Total Bilirubin 1.1 (0.2-1.3) mg/dL AST 24 (14-36) U/L ALT 14 (9-52) U/L Alkaline Phosphatase 99 (38-126) U/L Total Protein 8.6 H (6.3-8.2) g/dL Albumin 4.6 (3.5-5.0) g/dL Amylase 66 (30-110) U/L Lipase 110 (23-300) U/L HCG, Quant mIU/mL Urine Color Yellow Urine Appearance Cloudy H (Clear) Urine pH 6.5 (5.0-8.0) Ur Specific [place] 1.011 (1.001-1.035) Urine Protein 1+ H (Negative) Urine Glucose (UA) Negative (Negative) Urine Ketones 3+ H (Negative) Urine Blood Trace H (Negative) Urine Nitrite Negative (Negative) Urine Bilirubin Negative (Negative) Urine Urobilinogen <2.0 (<2.0) mg/dL Ur Leukocyte Esterase Large H (Negative) Urine RBC 3 (0-5) /hpf Urine WBC >182 H (0-5) /hpf Urine WBC Clumps Few H (None) /hpf Ur Squamous Epith Cells 1 (0-4) /hpf Urine Bacteria Few H (None) /hpf Urine Mucus Few H (None) /hpf Urine HCG, Qual Detected (Not Detectd) 08/25/19 08/25/19 Range/Units 00:15 00:15 WBC 10.9 H (3.8-10.6) k/uL RBC 4.68 (3.80-5.40) m/uL Hgb 12.6 (11.4-16.0) gm/dL Hct 38.6 (34.0-46.0) % MCV 82.5 (80.0-100.0) fL MCH 26.9 (25.0-35.0) pg MCHC 32.6 (31.0-37.0) g/dL RDW 14.3 (11.5-15.5) % Plt Count 382 (150-450) k/uL Neutrophils % 77 % Lymphocytes % 12 % Monocytes % 8 % Eosinophils % 1 % Basophils % 1 % Neutrophils # 8.4 H (1.3-7.7) k/uL Lymphocytes # 1.3 (1.0-4.8) k/uL Monocytes # 0.8 (0-1.0) k/uL Eosinophils # 0.1 (0-0.7) k/uL Basophils # 0.1 (0-0.2) k/uL Sodium (137-145) mmol/L Potassium (3.5-5.1) mmol/L Chloride (98-107) mmol/L Carbon Dioxide (22-30) mmol/L Anion Gap mmol/L BUN (7-17) mg/dL Creatinine (0.52-1.04) mg/dL Est GFR (CKD-EPI)AfAm (>60 ml/min/1.73 sqM) Est GFR (CKD-EPI)NonAf (>60 ml/min/1.73 sqM) Glucose (74-99) mg/dL Calcium (8.4-10.2) mg/dL Total Bilirubin (0.2-1.3) mg/dL AST (14-36) U/L ALT (9-52) U/L Alkaline Phosphatase (38-126) U/L Total Protein (6.3-8.2) g/dL Albumin (3.5-5.0) g/dL Amylase (30-110) U/L Lipase (23-300) U/L HCG, Quant 88755.5 mIU/mL Urine Color Urine Appearance (Clear) Urine pH (5.0-8.0) Ur Specific [place] (1.001-1.035) Urine Protein (Negative) Urine Glucose (UA) (Negative) Urine Ketones (Negative) Urine Blood (Negative) Urine Nitrite (Negative) Urine Bilirubin (Negative) Urine Urobilinogen (<2.0) mg/dL Ur Leukocyte Esterase (Negative) Urine RBC (0-5) /hpf Urine WBC (0-5) /hpf Urine WBC Clumps (None) /hpf Ur Squamous Epith Cells (0-4) /hpf Urine Bacteria (None) /hpf Urine Mucus (None) /hpf Urine HCG, Qual (Not Detectd) - Radiology Data Radiology results: report reviewed ultrasound was obtained. Report was reviewed in its entirety. Impression by Dr. Mercado shows tiny subchorionic fluid collection. Living cetyl intrauterine fetus with gestational to 6 weeks and 4 days. Heart rate is 122. Disposition Clinical Impression: , Subchorionic hemorrhage, Urinary tract infection Disposition: HOME SELF-CARE Condition: Good Instructions (If sedation given, give patient instructions): (ED), Urinary Tract Infection in (ED), Subchorionic Hemorrhage (ED) Additional Instructions: Increase fluids. Take medications as directed. Follow-up with your PROCESSOR HELPER for recheck as soon as possible. Follow-up with your primary care physician for recheck in 1-2 days. Return to the emergency department immediately for any new, worsening, or concerning symptoms. Your prescriptions have been sent to the [facility]. Prescriptions: Cephalexin [Keflex] 500 mg PO Q6HR #40 cap Pnv No.95/Ferrous Fum/Folic AC [ Multivitamin Tablet] 1 each PO DAILY #30 tablet Is patient prescribed a controlled substance at d/c from ED?: No Referrals: None,Stated [Primary Care Provider] - 1-2 days Time of Disposition: 02:14
[2019-08-25 03:01] VITALS: PULSE 82; TEMP 98.8
== END 2019-08-25 03:02 | disposition home or self-care (01) ==
LOC: EC 23:50
DX: O23.41 Unspecified infection of urinary tract in pregnancy, first trimester (principal); O20.8 Other hemorrhage in early pregnancy; O21.9 Vomiting of pregnancy, unspecified; Z32.01 Encounter for pregnancy test, result positive; Z98.890 Other specified postprocedural states; Z3A.01 Less than 8 weeks gestation of pregnancy
CPT/HCPCS: 99284; 96374; 96375 ×2; 96361 ×2; 36415; 80053; 82150; 83690; 85025; 81001; 81025; 84702; 87086; 87077; 87186; 76801; J2405; J0696; J2270

== ENCOUNTER → 2019-10-14 | Outpatient (CLI) | payer OTHER ==
--- NOTE | 2019-10-14 08:38 | US ---
EXAMINATION TYPE: Transabdominal DATE OF EXAM: 10/14/2019 7:38 AM COMPARISON: Patient states no previous Ultrasound. We show US 08/25/19 CLINICAL HISTORY: Z36 Confirm Dates. EXAM PERFORMED: Transabdominal (TA) EXAM MEASUREMENTS: GESTATIONAL AGE / DATING Physician Established: Not established Dates by LMP: (12 weeks/0 days) EDC: 04/27/2020 Dates by First Scan: (13 weeks/5 days) EDC: 04/15/2020 Dates by Current Scan for: (13 weeks/6 days) EDC: 04/14/2020 MATERNAL ANATOMY Uterus: 16.8 x 11.3 x 7.8 cm Right Ovary: 3.5 x 2.6 x 2.3 cm Left Ovary: 2.9 x 2.2 x 1.6 cm Post CDS / Adnexa: wnl Presence of free fluid: no Presence of corpus luteal cyst: no Presence of subchorionic bleed: no GESTATION / SURVEY CRL: 7.9 (13 weeks/6 days) BPD: 2.4 (14 weeks/0 days) HC: 9.1 (14 weeks/1 days) AC: 3.3 (13 weeks/ 6 days) FL: 1.2 (13 weeks/ 3 days) Heart Rate: 143 bpm Rhythm: Normal IUP: Viable IUP Nuchal Translucency 10-14wks (normal less than 3mm): Date of LMP: 07/22/2019 Beta HcG (if available): Cervix = 4.1 cm Posterior placenta Breech presentation IMPRESSION: 1. Single intrauterine gestation estimated at 13 weeks 6 days gestation based on current ultrasound m easurements. Cardiac activity measures 143 bpm
== END | disposition home or self-care (01) ==
LOC: RADUSWWP 07:08
PROVIDERS: ATTEND Obstetrics & Gynecology
DX: Z36.89 Encounter for other specified antenatal screening (principal); Z3A.13 13 weeks gestation of pregnancy
CPT/HCPCS: 76801

== ENCOUNTER → 2020-04-14 | Outpatient (CLI) | payer OTHER | END | disposition home or self-care (01) | LOC: LABWHC1 09:53 | PROVIDERS: ATTEND Obstetrics & Gynecology | DX: Z11.59 Encounter for screening for other viral diseases (principal) | CPT/HCPCS: 87635 ==

== ENCOUNTER 2020-04-16 06:05 | Inpatient (IN) | payer OTHER ==
[2020-04-15 11:12] VITALS: BMI 32.8
--- NOTE | 2020-04-15 19:53 | P.HPOB ---
History of Present Illness H&P Date: 04/15/20 Chief Complaint: Scheduled repeat section This is a 24 y.o. female, 2, para 1, with an estimated date of confinement of 04/14/2020, estimated gestational age of 40-2/7 weeks, who presents for scheduled repeat section. She has good movement and irregular contractions. Her has been essentially uncomplicated. labs: GC/Chlamydia/Trich-neg Hepatitis B surface antigen-neg RPR-NR [id number] Blood type-B+ Antibody screen-neg Hemoglobin-12.3 Random glucose-94 Quad screen-neg 1 hr. GTT-120 GBS-neg OB Hx: . Hx 1 section. 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 Social Hx: Single. Works [id number]. Review of Systems Constitutional: Denies chills, Denies fever Eyes: denies blurred vision, denies pain Ears, nose, mouth and throat: Denies headache, Denies sore throat Cardiovascular: Denies chest pain, Denies shortness of breath Respiratory: Denies cough Gastrointestinal: Reports abdominal pain (irreg. ctxs) Genitourinary: Reports pelvic pain, Reports Musculoskeletal: Reports low back pain Integumentary: Denies pruritus, Denies rash Neurological: Denies numbness, Denies weakness Psychiatric: Denies anxiety, Denies depression Past Medical History Past Medical History: No Reported History Additional Past Medical History / Comment(s): Low Iron as an History of Any Multi-Drug Resistant Organisms: None Reported Past Surgical History: Section Past Anesthesia/Blood Transfusion Reactions: No Reported Reaction Past Psychological History: No Psychological Hx Reported Smoking Status: Former smoker Past Alcohol Use History: None Reported Past Drug Use History: None Reported - Past Family History Father Family Medical History: Hypertension Mother Family Medical History: No Reported History Medications and Allergies Home Medications Medication Instructions Recorded Confirmed Type Pnv No.95/Ferrous Fum/Folic AC 1 each PO DAILY #30 tablet 08/25/19 04/16/20 Rx [ Multivitamin Tablet] Allergies Allergy/AdvReac Type Severity Reaction Status Date / Time No Known Allergies Allergy Verified 04/15/20 11:06 Exam Osteopathic Statement: *. No significant issues noted on an osteopathic structural exam other than those noted in the History and Physical/Consult. Intake and Output 04/15/20 04/15/20 04/15/20 06:59 14:59 22:59 Other: Weight 83.915 kg HEENT: within normal limits Heart: regular rate and rhythm Lungs: clear to auscultation bilaterally Abdomen: Cervix: closed/60%/-2 heart tones:140's by doppler Extremities: neg. Tyesha's Results Result Diagrams: 04/16/20 06:45 Assessment and Plan (1) Previous section Current Visit: No Status: Acute Code(s): Z98.891 - HISTORY OF UTERINE SCAR FROM PREVIOUS SURGERY SNOMED Code(s): 751581495 (2) 40 weeks gestation of Current Visit: No Status: Acute Code(s): Z3A.40 - 40 WEEKS GESTATION OF PREG ROS SNOMED Code(s): 59777493 Plan: Proceed with repeat low transverse section. I have discussed the risks, benefits, and alternative therapies for the above- mentioned procedure and for both sedation/anesthesia as well as necessary blood products administration, if indicated, as they pertain to this patient. The patient has indicated her understanding and acceptance of the risks and procedures discussed.
[2020-04-16] MEDS ORDERED: CITRIC ACID-SODIUM CITRATE 15 ML CUP PO ONE (06:49)
[2020-04-16] MEDS ORDERED: LACTATED RINGERS 1,000 ML IV ONE (06:49)
[2020-04-16] MEDS ORDERED: LIDOCAINE 1% (10MG/ML) FOR IV START INTRADERMA PRN (06:49)
[2020-04-16 07:04] LABS: Basophils # (A) 0.1 k/uL (0-0.2); Basophils % (A) 1 %; Eosinophils # (A) 0.3 k/uL (0-0.7); Eosinophils % (A) 4 %; HGB 10.7 gm/dL (11.4-16.0); Hypochromasia Moderate; Lymphocytes # (A) 1.7 k/uL (1.0-4.8); Lymphocytes % (A) 18 %; MCH 25.9 pg (25.0-35.0); MCHC 31.5 g/dL (31.0-37.0); MCV 82.2 fL (80.0-100.0); Mean Platelet Volume 8.3; Monocytes # (A) 0.7 k/uL (0-1.0); Monocytes % (A) 7 %; Neutrophils # (A) 6.5 k/uL (1.3-7.7); Neutrophils % (A) 69 %; Platelet Count 285 k/uL (150-450); RBC 4.14 m/uL (3.80-5.40); RDW 15.1 % (11.5-15.5); WBC 9.4 k/uL (3.8-10.6)
--- NOTE | 2020-04-16 08:38 | P.OP ---
Date of Procedure: 04/16/20 Preoperative Diagnosis: 1. Intrauterine at 40-2/7 weeks. 2. History of previous section. Postoperative Diagnosis: Same Procedure(s) Performed: Repeat low transverse section Anesthesia: spinal (Duramorph) Surgeon: Sahara Hudson Rough Rice Tender #1: Emery Forte Estimated Blood Loss (ml): 500 Pathology: none sent Condition: stable Disposition: floor Indications for Procedure: This is a 24-year-old female 2 para 1 at 40-2/7 weeks who presents for scheduled repeat section. I have discussed the risks, benefits, and alternative therapies for the above- mentioned procedure and for both sedation/anesthesia as well as necessary blood products administration, if indicated, as they pertain to this patient. The patient has indicated her understanding and acceptance of the risks and procedures discussed. Operative Findings: A viable male is noted in the vertex presentation with scores of 9 at 1 minute and 9 at 5 minutes and infant weight is. Normal uterus tubes and ovaries are noted. Description of Procedure: The patient is taken to the operating room where she is placed in the dorsal supine position with leftward tilt after spinal Duramorph anesthesia is given. She is prepped and draped in the normal sterile fashion. Skin was tested and found to be adequately anesthetized. A Pfannenstiel skin incision was made with a scalpel removing the previous laparotomy scar. A second knife was used to carry the incision down to the underlying layer of fascia. The fascia was nicked in the midline with a scalpel and then extended laterally bilaterally with Wray scissors. The anterior lip of the fascia was grasped with 2 Wolf clamps and then dissected off the underlying rectus muscle in the midline with Wray scissors. The inferior aspect of the fascial incision was grasped with 2 Wolf clamps and dissected off the underlying rectus muscle and the midline with Wray scissors. Next the peritoneum layer was tented up with 2 hemostats and then entered sharply with the scalpel. The incision is extended superiorly and inferiorly with Metzenbaum scissors. Next a DeLee retractor is placed. The vesicouterine peritoneum is entered sharply with Metzenbaum scissors and extended laterally bilaterally with Metzenbaum scissors and then the bladder flap is pushed inferiorly. The lower uterine segment is incised in transverse fashion with the scalpel and then bluntly entered with a hemostat. Clear fluid is noted. The incision was then extended laterally bilaterally with 2 fingers. Next the infant's head is delivered through the incision. Nose and mouth are bulb suctioned. The remainder of the infant is easily delivered and placed on mother's abdomen. Cord is clamped and cut. is taken to warmer by nursing staff. Uterine fundus is gently massaged and placenta is delivered manually. Uterus is exteriorized and cleared of all clots and debris. Uterine incision is closed with 0 Vicryl suture in a running locked fashion. A second layer of 0 Vicryl suture is used in a running fashion for hemostasis. Good hemostasis is noted. Posterior cul-de-sac is suctioned of all clots and debris. Uterus is returned to the abdomen. Incision is noted to be hemostatic. Peritoneal layer is closed with 0 Vicryl suture in a running fashion. Muscle layer is reapproximated with 0 Vicryl suture in interrupted fashion. Fascia layer is then closed with 0 PDS suture with 2 sutures meeting in the midline and the knots buried in either side and in the midline. The subcutaneous tissue was then closed with 2-0 Vicryl suture. Skin layer was then closed with liya. All sponge and needle counts are correct. The patient is taken to recovery room in stable condition.
[2020-04-16] MEDS ORDERED: PRENATAL VIT-IRON-FOLIC ACID 1 EACH CAP PO SCH (09:00)
[2020-04-16] MEDS ORDERED: ACETAMINOPHEN TAB 325 MG TAB PO PRN (09:01)
[2020-04-16] MEDS ORDERED: ZOLPIDEM 5 MG TAB PO PRN (09:01)
[2020-04-16] MEDS ORDERED: HYDROcodone/APAP 7.5-325MG 1 EACH TAB PO PRN (09:01)
[2020-04-16] MEDS ORDERED: LANOLIN CREAM 5 GM TUBE TOPICAL PRN (09:01)
[2020-04-16] MEDS ORDERED: HYDROcodone/APAP 5-325MG 1 EACH TAB PO PRN (09:01)
[2020-04-16] MEDS ORDERED: OXYTOCIN 20 UNITS/1000 ML NS 1,000 ML IV SCH (09:01)
[2020-04-16] MEDS ORDERED: SIMETHICONE 80 MG CHEWABLE PO PRN (09:01)
[2020-04-16] MEDS ORDERED: diphenhydrAMINE 50 MG/ML 1 ML VIAL IVP PRN ×2 (09:01)
[2020-04-16] MEDS ORDERED: METOCLOPRAMIDE 5 MG/ML 2 ML VIAL IVP PRN (09:01)
[2020-04-16] MEDS ORDERED: MEASLES-MUMPS-RUBELLA VACC/PF 12,500 UNIT/0.5 ML VIAL SQ ONE (09:01)
[2020-04-16] MEDS ORDERED: diphenhydrAMINE 25 MG CAP PO PRN (09:01)
[2020-04-16] MEDS ORDERED: NALOXONE 0.4 MG/ML 1 ML VIAL IV PRN (09:01)
[2020-04-16] MEDS ORDERED: diphenhydrAMINE 50 MG CAP PO PRN (09:01)
[2020-04-16] MEDS ORDERED: ONDANSETRON 4 MG/2 ML VIAL IVP PRN (09:01)
[2020-04-16] MEDS: SENNOSIDES-DOCUSATE SODIUM 1 EACH TAB PO SCH ×2 (10:17→21:05)
[2020-04-16] MEDS: LACTATED RINGERS 1,000 ML IV SCH ×2 (10:17→18:48)
[2020-04-16] MEDS: PRENATAL VIT-IRON-FOLIC ACID 1 EACH CAP PO SCH (14:36)
[2020-04-17] MEDS: KETOROLAC 30 MG/ML 1 ML VIAL IVP PRN ×2 (03:54→11:23)
--- NOTE | 2020-04-17 07:17 | P.PN ---
Progress Note - Text 04/17 702am 34-year-old female status post with spinal Duramorph. Patient seen and evaluated this morning she had a VAS of 70 last night, treated with oral pain medication for pain control. No complains of nausea vomiting or pruritus. Doing better today.
[2020-04-17] MEDS ORDERED: PHENYLEPHRINE-0.9% NACL SYG 1 MG/10 ML SYRINGE ONE (07:57)
[2020-04-17] MEDS ORDERED: MORPHINE SULFATE (PF) 0.3 MG/0.3 ML SYR ONE (07:57)
[2020-04-17] MEDS ORDERED: KETOROLAC 30 MG/ML 1 ML VIAL ONE (07:57)
[2020-04-17] MEDS ORDERED: OXYTOCIN 10 UNIT/ML 1 ML VIAL ONE (07:57)
[2020-04-17] MEDS ORDERED: ONDANSETRON 4 MG/2 ML VIAL ONE (07:57)
[2020-04-17 08:31] LABS: Basophils % (A) 0 %; Eosinophils # (A) 0.2 k/uL (0-0.7); Eosinophils % (A) 2 %; HCT 28.5 % (34.0-46.0); Hypochromasia Moderate; Lymphocytes # (A) 1.3 k/uL (1.0-4.8); Lymphocytes % (A) 14 %; MCH 25.3 pg (25.0-35.0); MCHC 30.8 g/dL (31.0-37.0); MCV 82.3 fL (80.0-100.0); Mean Platelet Volume 8.6; Monocytes # (A) 0.7 k/uL (0-1.0); Monocytes % (A) 8 %; Neutrophils # (A) 6.7 k/uL (1.3-7.7); Neutrophils % (A) 74 %; Platelet Count 250 k/uL (150-450); RBC 3.46 m/uL (3.80-5.40); RDW 15.3 % (11.5-15.5); WBC 9.1 k/uL (3.8-10.6)
[2020-04-17 08:36] LABS: HGB 8.8 gm/dL (11.4-16.0)
[2020-04-17] MEDS: SENNOSIDES-DOCUSATE SODIUM 1 EACH TAB PO SCH ×2 (08:51→20:36)
[2020-04-17] MEDS: PRENATAL VIT-IRON-FOLIC ACID 1 EACH CAP PO SCH (08:53)
--- NOTE | 2020-04-17 09:13 | P.PNOBGPC ---
Subjective - Subjective Principal diagnosis: Status post repeat section postoperative day #1 Interval history: Patient is doing well. She is ambulating. She is passing some flatus but no bowel movement yet. Lochia is decreasing. She is breast-feeding without difficulty. Her pain medication is starting to wear off this morning but she did get some IV Toradol through the night. Patient reports: Reports appetite normal, Reports voiding normally, Reports pain well controlled, Reports ambulating normally [place]: doing well, nursing well Objective - Vital Signs Latest vital signs: Vital Signs Temp Pulse Resp BP Pulse Ox 04/17/20 04:00 98.6 F 73 18 107/70 98 04/16/20 23:45 98.1 F 80 18 120/80 98 04/16/20 20:00 98.8 F 70 18 131/76 99 04/16/20 16:00 99 F 89 16 119/76 04/16/20 12:00 98.2 F 75 16 124/78 97 04/16/20 10:45 96.7 F L 80 16 123/88 04/16/20 10:14 70 16 126/78 100 04/16/20 09:45 73 16 117/66 100 04/16/20 09:28 81 16 122/65 99 04/16/20 09:15 84 16 127/81 98 Intake and Output 04/16/20 04/17/20 04/17/20 22:59 06:59 14:59 Output Total 400 Balance -400 Output: Urine 400 Other: Voiding Method Indwelling Catheter # Voids 1 - Exam Extremities: Present: normal. Absent: tenderness, edema Abdomen: Present: normal appearance, soft, distention (Slight). Absent: tenderness Incision: Present: normal, dry, intact. Absent: erythematous Uterus: Present: normal, firm. Absent: tenderness - Labs Labs: Abnormal Lab Results - Last 24 Hours (Table) 04/17/20 Range/Units 07:40 RBC 3.46 L (3.80-5.40) m/uL Hgb 8.8 L D (11.4-16.0) gm/dL Hct 28.5 L (34.0-46.0) % MCHC 30.8 L (31.0-37.0) g/dL Assessment and Plan Assessment: Status post repeat section postoperative day #1 (1) Previous section Current Visit: No Status: Acute Code(s): Z98.891 - HISTORY OF UTERINE SCAR FROM PREVIOUS SURGERY SNOMED Code(s): 150511949 (2) 40 weeks gestation of Current Visit: No Status: Acute Code(s): Z3A.40 - 40 WEEKS GESTATION OF SNOMED Code(s): 68108611 Plan: Continue with postoperative care. Will switch to oral pain medications today. Patient is encouraged to ambulate.
[2020-04-17] MEDS: IBUPROFEN 600 MG TAB PO PRN (17:30)
[2020-04-17 23:42] VITALS: TEMP 98.1
[2020-04-18] MEDS: IBUPROFEN 600 MG TAB PO PRN ×2 (00:33→08:44)
--- NOTE | 2020-04-18 03:51 | P.DS ---
Providers Date of admission: 04/16/20 06:05 Expected date of discharge: 04/18/20 Attending physician: Sahara Hudson Primary care physician: Stated None - Discharge Diagnosis(es) (1) Previous section Current Visit: No Status: Acute (2) 40 weeks gestation of Current Visit: No Status: Acute Hospital Course: This is a 24-year-old female 2 para 1 at 40-2/7 weeks who presented for scheduled repeat section. She underwent a repeat low transverse section on 04/16/2020 and delivered a viable male with scores of 9 at 1 minute and 9 at 5 minutes and weight of 8 lbs. 13 oz. Her post operative and course have been essentially uncomplicated. She is passing flatus and bowel movement. Her pain was under control for the first day but she is thinking about taking a [place] now. She would like to go home later today as long as alternating between [place] and ibuprofen is working for her pain. Vital signs are stable. Abdomen is soft with fundus firm and nontender. Bowel sounds are present 4. Incision is clean dry and intact. Extremities show negative Homans. Impression is status post repeat section postoperative day #2. Plan is to discharge home later today as long as her pain is well-controlled. She will be given a prescription for ibuprofen and [place]. She will also be given a prescription for a breast pump. She is advised follow-up in the office in approximately 1 week for a postoperative check and in 6 weeks for a check. She is advised to call the office if she has any further questions or concerns prior to her appointment time. Procedures: Repeat low transverse section on 04/16/2020 Patient Condition at Discharge: Stable Plan - Discharge Summary Discharge Rx Participant: Yes New Discharge Prescriptions: New Ibuprofen [Motrin] 600 mg PO Q6HR PRN #60 tab PRN Reason: Mild Pain Or Fever >= 100.5 HYDROcodone/APAP 5-325MG [[place] 5-325] 1 each PO Q4HR PRN #30 tab PRN Reason: Moderate Pain Continue Pnv No.95/Ferrous Fum/Folic AC [ Multivitamin Tablet] 1 each PO DAILY #30 tablet Discharge Medication List Pnv No.95/Ferrous Fum/Folic AC [ Multivitamin Tablet] 1 each PO DAILY #30 tablet 08/25/19 [Rx] HYDROcodone/APAP 5-325MG [[place] 5-325] 1 each PO Q4HR PRN #30 tab 04/18/20 [Rx] Ibuprofen [Motrin] 600 mg PO Q6HR PRN #60 tab 04/18/20 [Rx] Follow up Appointment(s)/Referral(s): Sahara Hudson DO [Doctor of Osteopathic Medicine] - 1 Week Activity/Diet/Wound Care/Special Instructions: Instructions 1. Do not begin any exercise program for 3 weeks. 2. Do not resume sexual relations for 3 weeks or longer if uncomfortable. 3. You may take tub baths or showers at any time. 4. You may use tampons if desired after 3 weeks. 5. Keep the area of episiotomy (stitches) clean and dry. 6. If you are not nursing, wear a good fitting, supportive bra during the day and limit fluid intake for at least 1 week to prevent breast engorgement. 7. Call the office, [phone], within the next week to make appointment for your 6 week checkup if it has not already been made. 8. Report any of the following occurrences to the doctor promptly: a. Heavy, excessive bleeding b. Chills, fever c. Burning or frequency of urination d. Pain or redness and breasts if nursing e. Increasing pain or swelling in episiotomy (stitches). In addition to the above instructions, the following additional should be followed: 1. No heavy lifting or straining (exercising) until after 6 week checkup. 2. Keep abdominal incision clean and dry: You may wear a dressing if more comfortable. 3. Make office appointment for 10 days after going home or as instructed by her doctor. Discharge Disposition: HOME SELF-CARE
[2020-04-18] MEDS: PRENATAL VIT-IRON-FOLIC ACID 1 EACH CAP PO SCH (08:44)
[2020-04-18] MEDS: SENNOSIDES-DOCUSATE SODIUM 1 EACH TAB PO SCH (08:44)
[2020-04-18 09:28] VITALS: BP 120/71; PULSE 75; RESP 20
== END 2020-04-18 13:25 | disposition home or self-care (01) | DRG 788 ==
LOC: 4FBP 06:05
PROVIDERS: ADMIT Obstetrics & Gynecology; ATTEND Obstetrics & Gynecology
PROC: 10D00Z1 Extraction of Products of Conception, Low, Open Approach (ICD-10-PCS; principal; 2020-04-16 08:00)
DX: O34.211 Maternal care for low transverse scar from previous cesarean delivery (principal); Z37.0 Single live birth; Z3A.40 40 weeks gestation of pregnancy; Z87.891 Personal history of nicotine dependence; Z82.49 Family history of ischemic heart disease and other diseases of the circulatory system
CPT/HCPCS: 85025; 90471; 90707

== ENCOUNTER 2022-04-10 22:20 | Emergency (ER) | payer OTHER ==
[2022-04-10 23:00] VITALS: TEMP 98.8
[2022-04-10] MEDS ORDERED: ONDANSETRON ODT 4 MG TAB PO STA (23:01)
[2022-04-11] MEDS ORDERED: SODIUM CHLORIDE 0.9% 1,000 ML IV ONE (00:03)
--- NOTE | 2022-04-11 00:08 | ED ---
General Adult HPI - General Chief complaint: Nausea/Vomiting/Diarrhea Stated complaint: Vomiting,L&R hand numbness Time Seen by Provider: 04/11/22 00:03 Source: patient Mode of arrival: wheelchair - History of Present Illness Initial comments: Tina is a 86 her old female presents the ER today for evaluation of nausea vomiting inability tolerate oral intake and feeling dehydrated. No abdominal pain, general malaise no documented fever. Last menses was a week ago no concern for . - Related Data Previous Rx's Medication Instructions Recorded Pnv No.95/Ferrous Fum/Folic AC 1 each PO DAILY #30 tablet 08/25/19 [ Multivitamin Tablet] HYDROcodone/APAP 5-325MG [[place] 1 each PO Q4HR PRN #30 tab 04/18/20 5-325] Ibuprofen [Motrin] 600 mg PO Q6HR PRN #60 tab 04/18/20 Allergies Allergy/AdvReac Type Severity Reaction Status Date / Time No Known Allergies Allergy Verified 04/10/22 23:00 Review of Systems ROS Statement: Those systems with pertinent positive or pertinent negative responses have been documented in the HPI. ROS Other: All systems not noted in ROS Statement are negative. Past Medical History Past Medical History: No Reported History Additional Past Medical History / Comment(s): Low Iron as an Infant History of Any Multi-Drug Resistant Organisms: None Reported Past Surgical History: Section Past Anesthesia/Blood Transfusion Reactions: No Reported Reaction Past Psychological History: No Psychological Hx Reported Smoking Status: Never smoker Past Alcohol Use History: None Reported Past Drug Use History: None Reported - Past Family History Father Family Medical History: Hypertension Mother Family Medical History: No Reported History General Exam - General Exam Comments Initial Comments: Physical Exam GENERAL: Appears mildly dehydrated HENT: Normocephalic, Atraumatic. EYES: PERRL, EOMI PULMONARY: Unlabored respirations. CARDIOVASCULAR: RRR Warm and well perfused extremities ABDOMEN: soft, non-peritoneal SKIN: No rashes or bruising : Deferred NEUROLOGIC: Alert and oriented Normal speech MUSCULOSKELETAL: Moving all extremities with no apparent injury PSYCHIATRIC: No SI/HI Course Vital Signs 04/10/22 22:58 Temperature 98.8 F Pulse Rate 100 Respiratory 18 Rate Blood Pressure 134/80 O2 Sat by Pulse 98 Oximetry Medical Decision Making - Medical Decision Making The patient was seen and evaluated history is obtained from patient, patient concern that she is dehydrated and nauseated all day not tolerating oral intake she received Zofran from triage, she reports feeling better would like icewater. IV fluids ordered due to concern for dehydration Patient was advised that she has influenza A. Recommended supportive care, h ydration she'll be discharged home with Zofran starter pack and a prescription for Zofran. - Lab Data Lab Results 04/10/22 04/10/22 Range/Units 23:04 23:04 Coronavirus (PCR) Not Detected (Not Detectd) Influenza Type A RNA Detected H (Not Detectd) Influenza Type B (PCR) Not Detected (Not Detectd) Disposition Clinical Impression: Influenza, Nausea and vomiting Disposition: HOME SELF-CARE Condition: Stable Instructions (If sedation given, give patient instructions): Influenza (DC) Is patient prescribed a controlled substance at d/c from ED?: No Referrals: None,Stated [Primary Care Provider] - 1-2 days
[2022-04-11] MEDS ORDERED: ONDANSETRON 4 MG ODT STARTER PACK 2 TAB BTL PO STA (00:42)
[2022-04-11 00:57] LABS: Appearance,Urine Cloudy (Clear); Bacteria,Urine Rare /hpf; Bilirubin,Urine Negative (Negative); Blood,Urine Small (Negative); Color,Urine Yellow; Glucose,Urine (UA) Trace (Negative); Ketones,Urine 4+ (Negative); Leukocyte Esterase,Urine Trace (Negative); Mucus,Urine Many /hpf; Nitrite,Urine Negative (Negative); Protein,Urine 2+ (Negative); RBC,Urine 2 /hpf (0-5); Specific Gravity,Urine 1.029 (1.001-1.035); Squamous Epithelial Cell,Urine 18 /hpf (0-4); Urobilinogen,Urine <2.0 mg/dL (<2.0); WBC,Urine 5 /hpf (0-5)
[2022-04-11 01:06] VITALS: BP 130/75; PULSE 84; RESP 20
== END 2022-04-11 01:06 | disposition home or self-care (01) ==
LOC: EC 22:20
DX: J11.1 Influenza due to unidentified influenza virus with other respiratory manifestations (principal); R11.2 Nausea with vomiting, unspecified; Z20.822 Contact with and (suspected) exposure to COVID-19
CPT/HCPCS: 81001; 81025; 87502; 87635; 99284; S0119